=== PATIENT | female | born 1990 | race Caucasian/White ===

== ENCOUNTER 2016-11-26 17:49 | Emergency (ER) | payer MEDICAID ==
[~2016-11-26] VITALS: Ht 157.5 cm; Wt 54.4 kg
[~2016-11-26 17:49] MED LIST: FLONASE1 SPRAYS NASAL; MOTRIN400 MG PO
[2016-11-26] MEDS ORDERED: NKM (18:01)
--- NOTE | 2016-11-26 18:12 | Emergency Room Report ---
History of Present Illness General Chief Complaint: Sore Throat Source: Patient Present Illness HPI 26 YO Female presents to the ED c/o : in severity right sided sore throat , and tonsillar swelling,x 2 days. reports chills. denies neck pain or stiffness , denies cough. pain is exacerbated with swallowing. Patient denies rash, abdominal pain, nausea, vomiting, recent travel or ill contacts. Denies CP, Palpitations, LOC, AMS, dizziness, Changes in Vision, Sensation, paresthesias, or a sudden severe headache. Allergies: Coded Allergies: No Known Allergies (Unverified , 05/19/12) Patient History Past Medical History: see triage record Past Surgical History: none Pertinent Family History: none Now: No Immunizations: UTD Reviewed Nursing Documentation: PMH: Agreed, PSxH: Agreed Nursing Documentation-PMH Past Medical History: No Stated History Review of Systems All Other Systems: negative except mentioned in HPI Physical Exam Vital Signs Date Time Temp Pulse Resp B/P (MAP) Pulse Ox O2 Delivery O2 Flow Rate FiO2 11/26/16 17:53 99.1 99 17 123/70 100 Room Air Sp02 EP Interpretation: reviewed, normal General Appearance: no apparent distress, alert, GCS 15, non-toxic Head: normocephalic, atraumatic Eyes: bilateral eye normal inspection, bilateral eye PERRL ENT: hearing grossly normal, normal pharynx, no angioedema, normal voice, TMs + canals normal, tonsillar swelling - unilateral right tonsillar swelling, exudates noted, Uvula is midline, no palpable fluctuance, pharyngeal erythema Neck: full range of motion Respiratory: lungs clear, normal breath sounds, speaking full sentences Cardiovascular #1: regular rate, rhythm Gastrointestinal: no guarding Rectal: deferred Musculoskeletal: back normal, gait/station normal, normal range of motion, non- tender Neurologic: alert, oriented x3, responsive, motor strength/tone normal, sensory intact, speech normal Psychiatric: judgement/insight normal, memory normal, mood/affect normal Skin: normal color, no rash, warm/dry, well hydrated Lymphatic: other - bilateral anterior cervical LAD Medical Decision Making PA Attestation Dr. Hall is my supervising Physician whom patient management has been discussed with. Diagnostic Impression: Primary Impression: Tonsillitis with exudate ER Course 26 YO Female presents to the ED c/o : 6/ 10 in severity right sided sore throat , and tonsillar swelling,x 2 days. reports chills. denies neck pain or stiffness , denies cough. pain is exacerbated with swallowing. Patient denies rash, abdominal pain, nausea, vomiting, recent travel or ill contacts. Denies CP, Palpitations, LOC, AMS, dizziness, Changes in Vision, Sensation, paresthesias, or a sudden severe headache. Ddx considered but are not limited to: pharyngitis, strep, GROUP PRESIDENT, ludwigs angina, URI Vital signs: are WNL, pt. is afebrile H&PE are most consistent with: tonsillitis presumed strep. - no palpable fluctuance or deviated uvula ORDERS: None required at this time as the diagnosis is clinical ED INTERVENTIONS: -Decadron IM -d/w pt. she will be treated with oral abx, and to estonian rx completely. - D/W pt. to promptly return to ED with worsening or new symptoms. DISCHARGE: At this time pt. is stable for d/c to home. Will provide printed patient care instructions, and any necessary prescriptions. Care plan and follow up instructions have been discussed with the patient prior to discharge. Last Vital Signs Date Time Temp Pulse Resp B/P (MAP) Pulse Ox O2 Delivery O2 Flow Rate FiO2 11/26/16 17:53 99.1 99 17 123/70 100 Room Air Disposition: HOME, SELF-CARE Condition: Stable Scripts Ibuprofen* (MOTRIN*) 600 Mg Tablet 600 MG ORAL THREE TIMES A DAY, #30 TAB 0 Refills Prov: Hayley Forrester 11/26/16 Amoxicillin* (AMOXIL*) 500 Mg Capsule 500 MG ORAL Q12HR for 10 Days, #20 CAP Prov: Hayley Forrester 11/26/16 Referrals: [facility],REFERRING (PCP) Departure Forms: Return to Work Return to Work Date: Nov 29, 2016 Work Restrictions: None Return to Full Activity: Nov 29, 2016 Patient Instructions: Tonsillitis Additional Instructions: Take medications as directed. Follow up with a Primary Care Provider in 3-5 days, even if your symptoms have resolved. --Please review list of primary care clinics, if you do not already have a primary care provider Return sooner to ED if new symptoms occur, or current symptoms become worse. - Please note that this Emergency Department Report was dictated using [employer] manager technology software, occasionally this can lead to erroneous entry secondary to interpretation by the dictation equipment. Hayley Forrester Nov 26, 2016 18:12
[2016-11-26] MEDS ORDERED: Dexamethasone 4mg/ml vial IM ONE (18:15)
[2016-11-26 18:16] VITALS: BP 116/74
[2016-11-26] MEDS ORDERED: IBUPROFEN600 MG ORAL (18:20)
[2016-11-26] MEDS ORDERED: AMOXICILLIN500 MG ORAL (18:20)
[2016-11-26 18:37] VITALS: BP 116/74
== END 2016-11-26 18:38 | disposition home or self-care (01) ==
LOC: EMR 18:07
DX: J03.90 Acute tonsillitis, unspecified (principal)
CPT/HCPCS: 96372; 99283; J1100